=== PATIENT | female | born 1995 | race Two or more races ===

== ENCOUNTER 2023-11-11 12:51 | Emergency (ER) | payer OTHER, SELFPAY ==
[~2023-11-11] VITALS: Ht 152.4 cm; Wt 63.0 kg
[2023-11-11] MEDS: ACETAMINOPHEN TAB 650MG DOSE (2X325MG) PO ONE (13:39)
[2023-11-11] MEDS: NS 1,000 ML IV ONE (13:39)
[2023-11-11 13:45] LABS: HEMATOCRIT 40.2 % (36.0-47.0); HEMOGLOBIN 13.3 g/dl (12.0-15.5); MEAN CORPUSCULAR HEMOGLOBIN 28.6 pg (27.0-33.0); MEAN CORPUSCULAR HGB CONC 33.1 g/dl (32.0-36.5); MEAN CORPUSCULAR VOLUME 86.5 fl (80.0-96.0); PLATELET COUNT, AUTOMATED 260 10^3/uL (150-450); RED BLOOD COUNT 4.65 10^6/uL (4.00-5.40)
[2023-11-11 14:17] LABS: LIPASE 47 U/L (12-53)
[2023-11-11 14:23] LABS: HCG, SERUM QUALITATIVE NEGATIVE (NEGATIVE)
[2023-11-11 14:52] LABS: HIV 1&2 SCREEN NEGATIVE (NEGATIVE)
[2023-11-11 14:57] LABS: ALBUMIN 4.1 G/DL (3.2-5.2); ALKALINE PHOSPHATASE 112 U/L (46-116); ALT/SGPT 23 U/L (7.0-40); AST/SGOT < 8 U/L (<34); BILIRUBIN,DIRECT 0.2 MG/DL (<0.4); BILIRUBIN,TOTAL 0.4 MG/DL (0.3-1.2); BLOOD UREA NITROGEN < 5 MG/DL (9-23); CALCIUM LEVEL 8.7 MG/DL (8.5-10.1); CARBON DIOXIDE LEVEL 27 MMOL/L (20-31); CHLORIDE LEVEL 102 MMOL/L (98-107); CREATININE FOR GFR 0.47 MG/DL (0.55-1.30); GLOMERULAR FILTRATION RATE > 60.0 (>60); GLUCOSE, FASTING 84 MG/DL (60-100); POTASSIUM SERUM 3.1 MMOL/L (3.5-5.1); SODIUM LEVEL 138 MMOL/L (136-145); TOTAL PROTEIN 7.5 G/DL (5.7-8.2)
[2023-11-11] MEDS ORDERED: ISOVUE-370 76% 100ML VIAL As Ordered ONE (14:58)
[2023-11-11 15:01] LABS: Trichomonas vaginalis (AMP) NOT DETECTED (NEGATIVE)
[2023-11-11 15:24] LABS: GC DNA AMPLIFICATION NEGATIVE (NEGATIVE)
[2023-11-11 16:16] VITALS: BP 148/92; TEMP 99.9; O2SAT 98
== END 2023-11-11 16:28 | disposition home or self-care (01) ==
LOC: M ED 12:51
DX: U07.1 COVID-19 (principal); K59.00 Constipation, unspecified; R16.0 Hepatomegaly, not elsewhere classified; N83.201 Unspecified ovarian cyst, right side; Z88.8 Allergy status to other drugs, medicaments and biological substances
CPT/HCPCS: 36415; 74177; 80048; 80076; 81001; 83690; 84703; 85027; 86780; 87389; 87486; 87581; 87633; 87661; 87798; 87810; 87850; 99284; Q9967

== ENCOUNTER 2024-01-10 06:33 | Emergency (ER) | payer OTHER ==
[~2024-01-10] VITALS: Ht 152.4 cm; Wt 61.2 kg
[2024-01-10] MEDS: MYCOLOG CREAM 15GM (NYSTATIN/TRIAMCINOLONE) TOP STA (08:40)
[2024-01-10] MEDS: diphenhydrAMINE 50MG/ML VIAL IV STA (09:05)
[2024-01-10] MEDS: methylPREDNISolone 125MG 2ML VIAL IV ONE (09:05)
[2024-01-10 09:20] LABS: Trichomonas vaginalis (AMP) NOT DETECTED (NEGATIVE)
[2024-01-10] MEDS ORDERED: MYCO15CR TOP (09:34)
[2024-01-10 09:37] VITALS: BP 103/64; TEMP 96.9; O2SAT 98
[2024-01-10 09:44] LABS: GC DNA AMPLIFICATION NEGATIVE (NEGATIVE)
== END 2024-01-10 13:10 | disposition home or self-care (01) ==
LOC: M ED 06:33
DX: B37.31 Acute candidiasis of vulva and vagina (principal); Z88.8 Allergy status to other drugs, medicaments and biological substances
CPT/HCPCS: 81001; 87210; 87661; 87810; 87850; 96374; 99283; J1200; J2919

== ENCOUNTER 2024-03-26 05:46 | Emergency (ER) | payer OTHER ==
[~2024-03-26] VITALS: Ht 152.4 cm; Wt 63.4 kg
[~2024-03-26 05:46] MED LIST: MYCO15CR TOP
[2024-03-26] MEDS ORDERED: ACET-897 PO (07:58)
[2024-03-26 08:00] LABS: BASO % 0.2 % (0.0-1.0); EOS % 0.2 % (0.0-3.0); HEMATOCRIT 43.2 % (36.0-47.0); HEMOGLOBIN 14.3 g/dl (12.0-15.5); LYMPH # 1.5 10^3/uL (1.5-5.0); MEAN CORPUSCULAR HEMOGLOBIN 28.9 pg (27.0-33.0); MEAN CORPUSCULAR HGB CONC 33.1 g/dl (32.0-36.5); MEAN CORPUSCULAR VOLUME 87.3 fl (80.0-96.0); MONO # 0.4 10^3/uL (0.0-0.8); MONO % 4.4 % (2.0-8.0); NEUTROPHILS # 6.9 10^3/uL (1.5-8.5); PLATELET COUNT, AUTOMATED 360 10^3/uL (150-450); RED BLOOD COUNT 4.95 10^6/uL (4.00-5.40); WHITE BLOOD COUNT 8.9 10^3/uL (4.0-10.0)
[2024-03-26] MEDS ORDERED: HOME MED LIST COMPLETE! XX SCH (08:00)
[2024-03-26 08:24] LABS: LIPASE 66 U/L (12-53)
[2024-03-26 08:26] LABS: ALBUMIN 3.8 G/DL (3.2-5.2); ALKALINE PHOSPHATASE 92 U/L (35-104); ALT/SGPT 34 U/L (7.0-40); AST/SGOT 17 U/L (<34); BILIRUBIN,DIRECT 0.1 MG/DL (<0.4); BILIRUBIN,TOTAL 0.3 MG/DL (0.3-1.2); BLOOD UREA NITROGEN 15 MG/DL (9-23); CALCIUM LEVEL 9.1 MG/DL (8.5-10.1); CARBON DIOXIDE LEVEL 24 MMOL/L (20-31); CHLORIDE LEVEL 106 MMOL/L (98-107); CREATININE FOR GFR 0.45 MG/DL (0.55-1.30); GLOMERULAR FILTRATION RATE > 60.0 (>60); GLUCOSE, FASTING 113 MG/DL (60-100); POTASSIUM SERUM 4.9 MMOL/L (3.5-5.1); SODIUM LEVEL 135 MMOL/L (136-145); TOTAL PROTEIN 7.7 G/DL (5.7-8.2)
[2024-03-26 08:42] LABS: HCG, SERUM QUALITATIVE NEGATIVE (NEGATIVE)
[2024-03-26] MEDS ORDERED: ONDA-282 PO (09:21)
[2024-03-26 09:55] VITALS: BP 118/70; TEMP 97.5; O2SAT 95
== END 2024-03-26 09:48 | disposition home or self-care (01) ==
LOC: M ED 05:46
DX: R11.2 Nausea with vomiting, unspecified (principal); Z88.8 Allergy status to other drugs, medicaments and biological substances; Z79.1 Long term (current) use of non-steroidal anti-inflammatories (NSAID); Z79.899 Other long term (current) drug therapy

== ENCOUNTER → 2024-12-01 | Outpatient (REF) | payer OTHER ==
[~2024-12-01] MED LIST changes: +ACET-897 PO; -MYCO15CR TOP; +NYST15CR12 TOP; +ONDA-282 PO
[2024-12-01 20:21] LABS: APPEARANCE, URINE HAZY (CLEAR); BACTERIA, URINE AUTO 1+ (NEGATIVE); BILIRUBIN, URINE AUTO NEGATIVE (NEGATIVE); BLOOD, URINE BLOOD 3+ (NEGATIVE); GLUCOSE, URINE (UA) AUTO NEGATIVE (NEGATIVE); KETONE, URINE AUTO NEGATIVE (NEGATIVE); LEUKOCYTE ESTERASE, URINE AUTO 1+ (NEGATIVE); MUCUS, URINE SMALL (NEGATIVE); NITRITE, URINE AUTO NEGATIVE (NEGATIVE); PROTEIN, URINE AUTO NEGATIVE (NEGATIVE); RBC, URINE AUTO 19 /HPF (0-3); SPECIFIC GRAVITY URINE AUTO 1.030 (1.002-1.035); SQUAMOUS EPITHELIAL CELL UR AU 2 /HPF (0-6); UROBILINOGEN, URINE AUTO 0.2 mg/dL (0.0-2.0); WBC, URINE AUTO 23 /HPF (0-3)
== END ==
LOC: M LAB REF 17:50
PROVIDERS: ATTEND Physician Assistant
DX: N39.0 Urinary tract infection, site not specified (principal)